=== PATIENT | male | born 2000 | race Caucasian/White ===

== ENCOUNTER 2019-04-06 22:52 | Emergency (ER) | payer OTHER ==
[2019-04-06 22:57] VITALS: BP 140/90; PULSE 79; TEMP 98.7; BMI 23.5
--- NOTE | 2019-04-07 00:08 | PDOC ---
History of Present Illness - General Chief Complaint: Cold Symptoms Stated Complaint: COLD SYMPTOMS Time Seen by Provider: 04/06/19 23:26 History Source: Patient Exam Limitations: No Limitations - History of Present Illness Initial Comments: 04/07/19 00:28 HISTORY OF PRESENT ILLNESS: This is a 18-year-old otherwise healthy male presents emergency department for evaluation of sore throat for one week and progressive muffled hearing and right ear pain worsening over 3 days. Reports his throat has improved after 7 days but was concerned more about the ear. Denies any discharge or drainage from the ears, fevers, chills, cough, shortness of breath. Patient denies any headphone or earbud use on a regular basis but occasionally does use earbuds. He denies any trauma No recent travel or sick contacts. PAST MEDICAL HISTORY: Denies past medical history SURGICAL HISTORY: Denies ALLERGIES: No known drug allergies REVIEW OF SYSTEMS General/Constitutional: Denies fever or chills. Denies weakness, weight change. HEENT: see HPI Cardiovascular: Denies chest pain or shortness of breath. Respiratory: Denies cough, wheezing, or hemoptysis. Gastrointestinal: Denies nausea, vomiting, diarrhea or constipation. Denies rectal bleeding. Genitourinary: Denies dysuria, frequency, or change in urination. Musculoskeletal: Denies joint or muscle swelling or pain. Denies neck or back pain. Skin and breasts: Denies rash or easy bruising. Neurologic: Denies headache, vertigo, loss of consciousness, or loss of sensation. Psychiatric: Denies depression or anxiety. Endocrine: Denies increased thirst. Denies abnormal weight change. Hematologic/Lymphatic: Denies anemia, easy bleeding, or history of blood clots. Allergic/Immunologic: Denies hives or skin allergy. Denies latex allergy. PHYSICAL EXAM General Appearance: Well-appearing, appropriately dressed. No apparent distress , no intoxication. HEENT: EOMI, PERRLA, normal ENT inspection, normal voice. No conjunctival pallor. No photophobia, scleral icterus. Oropharynx mildly erythematous. TMs erythematous and bulging bilaterally with effusion present bilaterally. External auditory canals clear without erythema or exudates present. Neck: Supple. Trachea midline. No tenderness, rigidity, carotid bruit, stridor , lymphadenopathy, or thyromegaly. Respiratory/Chest: Lungs CTAB. No shortness of breath, chest tenderness, respiratory distress, accessory muscle use. No crackles, rales, rhonchi, stridor , wheezing, dullness Cardiovascular: RRR. S1, S2. No JVD, murmur, bradycardia, tachycardia. Gastrointestinal/Abdominal: Normal bowel sounds. Abdomen soft, non-distended. No tenderness or rebound tenderness. No organomegaly, pulsatile mass, guarding, hernia, hepatomegaly, splenomegaly. Neurologic: sole stainer II-XII intact. Fully oriented, alert. Appropriate mood/affect. Motor strength 5/5. No appreciable EOM palsy, facial droop or sensory deficit. Is this a multiple visit Asthma Patient?: No Past History - Past Medical History Allergies/Adverse Reactions: Allergies Allergy/AdvReac Type Severity Reaction Status Date / Time No Known Allergies Allergy Verified 04/06/19 22:57 Home Medications: Ambulatory Orders No Home Medications 0 dose .ROUTE UTDICT 11/30/12 Amoxicillin - [Amoxicillin 500mg Capsule -] 500 mg PO BID #20 capsule 04/07/19 - Psycho Social/Smoking Cessation Hx Smoking Status: No Smoking History: Never smoked Have you smoked in the past 12 months: No Number of Cigarettes Smoked Daily: 0 Information on smoking cessation initiated: No Hx Alcohol Use: Yes (Social) Drug/Substance Use Hx: No *Physical Exam - Vital Signs Last Vital Signs Temp Pulse Resp BP Pulse Ox 98.7 F 79 20 140/90 98 04/06/19 22:55 04/06/19 22:55 04/06/19 22:55 04/06/19 22:55 04/06/19 22:55 Discharge - Discharge Information Problems reviewed: Yes Clinical Impression/Diagnosis: Otitis media Qualifiers: Otitis media type: unspecified Chronicity: acute Qualified Code(s): H66.90 - Otitis media, unspecified, unspecified ear Condition: Fair Disposition: HOME - Admission No - Additional Discharge Information Prescriptions: Amoxicillin - [Amoxicillin 500mg Capsule -] 500 mg PO BID #20 capsule - Follow up/Referral - Patient Discharge Instructions Additional Instructions: Take amoxicillin 500 mg twice a day as prescribed. Take Tylenol and Motrin as needed for fever and pain. Follow manufacturers instructions for appropriate dosage. Make an appointment with your doctor for reevaluation symptoms do not improve in the next 4 days. Return to emergency department for worsening pain, fevers even while giving medication, drainage from the ears, or any other concerns. Thank you very much for choosing us to provide your emergent healthcare needs. - Post Discharge Activity Work/Back to School Note: Back to Work
== END 2019-04-07 00:50 | disposition home or self-care (01) ==
LOC: JER 22:52
DX: H66.90 Otitis media, unspecified, unspecified ear (principal)
CPT/HCPCS: 99281-25